=== PATIENT | female | born 1955 | race Two or more races ===

== ENCOUNTER 2024-07-12 08:34 | Outpatient (RCR) | payer MEDICAID, SELFPAY | END 2024-07-28 23:59 | disposition home or self-care (01) | LOC: SCTC 08:34 | PROVIDERS: PCP Nurse Practitioner Family; Referring Provider Nurse Practitioner Family; Visit Provider Nurse Practitioner Family | DX: D69.6 Thrombocytopenia, unspecified (principal); Z90.710 Acquired absence of both cervix and uterus; I10 Essential (primary) hypertension | CPT/HCPCS: 99212; G0463 ==

== ENCOUNTER 2024-11-19 13:27 | Outpatient (RCR) | payer MEDICAID, SELFPAY | END 2024-11-26 23:59 | disposition home or self-care (01) | LOC: SCTC 13:27 | PROVIDERS: PCP Nurse Practitioner Family; Referring Provider Nurse Practitioner Family; Visit Provider Nurse Practitioner Family | DX: D69.6 Thrombocytopenia, unspecified (principal); R74.01 Elevation of levels of liver transaminase levels; Z90.710 Acquired absence of both cervix and uterus | CPT/HCPCS: 99212; G0463 ==

== ENCOUNTER 2025-07-29 09:00 | Outpatient (RCR) | payer MEDICAID, SELFPAY | END 2025-08-28 23:59 | disposition home or self-care (01) | LOC: SCTC 09:00 | PROVIDERS: PCP Nurse Practitioner Family; Referring Provider Nurse Practitioner Family; Visit Provider Nurse Practitioner Family | DX: D69.6 Thrombocytopenia, unspecified (principal) | CPT/HCPCS: 99212; G0463 ==